=== PATIENT | male | born 1990 | race Caucasian/White ===

== ENCOUNTER 2018-05-24 08:31 | Inpatient (IN) | payer MEDICAID ==
[~2018-05-24] VITALS: Ht 160 cm; Wt 83.5 kg
[2018-05-24 08:42] VITALS: Ht 160 cm; Wt 83.5 kg
[2018-05-24 10:37] LABS: BASOPHIL % 0.8 % (0-2); RED CELL DISTRIBUTION WIDTH 13.4 % (11.5-14.5)
[2018-05-24 10:41] LABS: PLATELET COUNT 129 x10^3mcL (130-400)
[2018-05-24 10:53] LABS: CALCIUM 8.8 mg/dL (8.5-10.1); CHLORIDE SERUM 101 mmol/L (98-107); CREATININE SERUM 0.6 mg/dL (0.7-1.3); GFR1 > 60 mL/min; GLUCOSE SERUM 103 mg/dL (74-106); POTASSIUM SERUM 3.3 mmol/L (3.5-5.1); SODIUM SERUM 139 mmol/L (136-145)
[2018-05-24 10:57] LABS: ALBUMIN 3.7 g/dL (3.4-5.0); ALKALINE PHOSPHATASE 108 U/L (46-116); ALT/SGPT 45 U/L (16-63); AST/SGOT 42 U/L (15-37); BILIRUBIN TOTAL 0.6 mg/dL (0.20-1.00); LIPASE 281 IU/L (73-393); TOTAL PROTEIN, SERUM 7.9 g/dL (6.4-8.2)
[2018-05-24 12:27] VITALS: BP 132/77
[2018-05-24 12:57] LABS: MAGNESIUM 1.5 mg/dL (1.8-2.4); PHOSPHOROUS 1.7 mg/dL (2.5-4.9)
[2018-05-24 13:08] LABS: T3 TOTAL 0.93 ng/mL
[2018-05-24 13:09] LABS: FREE T4 0.88 ng/dL (0.76-1.46); FREE THYROXINE INDEX 1.9 ug/dL (1.4-4.5); T4(THYROXINE) 5.3 ug/dL (4.7-13.3)
[2018-05-24 13:23] LABS: microscopic required? YES; urine erythrocyte NEGATIVE (NEGATIVE)
[2018-05-24 13:33] LABS: AMPHETAMINE QUAL UR NONE DETECTED (See below)
[2018-05-24 18:00] VITALS: BP 137/79
[2018-05-24 20:28] VITALS: BP 141/80
[2018-05-25 06:10] LABS: CALCIUM 8.9 mg/dL (8.5-10.1); CARBON DIOXIDE 29.6 mmol/L (21-32); CHLORIDE SERUM 99 mmol/L (98-107); CREATININE SERUM 0.6 mg/dL (0.7-1.3); GFR1 > 60 mL/min; GLUCOSE SERUM 88 mg/dL (74-106); LIPASE 273 IU/L (73-393); MAGNESIUM 1.7 mg/dL (1.8-2.4); PHOSPHOROUS 3.5 mg/dL (2.5-4.9); POTASSIUM SERUM 4.5 mmol/L (3.5-5.1); SODIUM SERUM 136 mmol/L (136-145)
[2018-05-25 06:19] VITALS: BP 135/93
[2018-05-25 06:46] LABS: BASOPHIL % 1.1 % (0-2); PLATELET COUNT 109 x10^3mcL (130-400); RED CELL DISTRIBUTION WIDTH 13.9 % (11.5-14.5)
[2018-05-25 08:19] VITALS: BP 141/87
[2018-05-25 13:35] VITALS: BP 146/100
== END 2018-05-25 14:15 | disposition left against medical advice (07) | DRG 816 ==
LOC: ED 08:31 → DU 10:51 → MU 10:51 → DU 12:24
PROVIDERS: Emergency Medicine; Internal Medicine
DX: T51.0X1A Toxic effect of ethanol, accidental (unintentional), initial encounter (principal); N17.0 Acute kidney failure with tubular necrosis; G92 Toxic encephalopathy; E83.42 Hypomagnesemia; E83.39 Other disorders of phosphorus metabolism; F10.230 Alcohol dependence with withdrawal, uncomplicated; F10.220 Alcohol dependence with intoxication, uncomplicated; K29.20 Alcoholic gastritis without bleeding; R80.9 Proteinuria, unspecified; E87.6 Hypokalemia; Z72.0 Tobacco use; Z68.35 Body mass index [BMI] 35.0-35.9, adult; Y90.3 Blood alcohol level of 60-79 mg/100 ml
CPT/HCPCS: 84439; 90658; C9113; G0480; J2060; J2405; J3411; J3475; J3490; J7030; Q0092